=== PATIENT | male | born 1995 | race Caucasian/White ===

== ENCOUNTER 2016-07-27 12:48 | Emergency (ER) | payer OTHER, MEDICAID ==
[2016-07-27 13:56] VITALS: TEMP 98.2; BMI 18.6
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
[2016-07-27] MEDS ORDERED: DIPHTHERIA AND TETANUS (ADULT) 0.5 ML SYR IM ONE (15:19)
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
[2016-07-27 15:29] VITALS: BP 117/73; PULSE 85
== END 2016-07-27 15:34 | disposition home or self-care (01) ==
LOC: ED 12:48 → EDMC 15:34
DX: S60.413A Abrasion of left middle finger, initial encounter (principal); S16.1XXA Strain of muscle, fascia and tendon at neck level, initial encounter; S10.91XA Abrasion of unspecified part of neck, initial encounter; V49.9XXA Car occupant (driver) (passenger) injured in unspecified traffic accident, initial encounter; Y93.9 Activity, unspecified; Y92.410 Unspecified street and highway as the place of occurrence of the external cause; Z23 Encounter for immunization
CPT/HCPCS: 90471; 90714; 99283